=== PATIENT | female | born 1995 | race Caucasian/White ===

== ENCOUNTER 2021-01-22 10:17 | Emergency (ER) | payer BC, SELFPAY ==
[2021-01-22 10:18] VITALS: BP 179/113; PULSE 107; RESP 18; TEMP 35.9; BMI 44.2
--- NOTE | 2021-01-22 10:31 | CT_ITS ---
STUDY: CT ABDOMEN AND PELVIS WITHOUT CONTRAST REASON FOR EXAM: Female, 25 years old. R flank pain RADIATION DOSAGE (If Supplied By Facility): CTDIvol = ( 19.72 ) mGy, DLP = ( 1079.06 ) mGycm TECHNIQUE: Transaxial images were obtained from the dome of the diaphragm to the symphysis pubis without oral contrast, and without intravenous contrast. Sagittal and coronal images were reconstructed. Individualized dose optimization techniques were used for this CT. COMPARISON: None. FINDINGS: The visualized lung bases are unremarkable. The visualized portions of the heart are within normal limits. There is decreased attenuation of the liver consistent with steatosis. Normal gallbladder and extrahepatic biliary system. Normal spleen. Normal pancreas. Normal bilateral adrenal glands. Normal right kidney. Normal left kidney. Normal visualized stomach. Normal small intestine. Normal colon. The appendix is visualized and appears normal. Normal abdominal aorta. Normal inferior vena cava. Normal retroperitoneum. Normal urinary bladder. Normal abdominal wall. Normal osseous structures. CT/Abdomen/Pelvis without Cont IMPRESSION: No evidence of nephrolithiasis or hydronephrosis. No evidence of additional acute intra-abdominal process or focal inflammation. Normal appendix. Electronically Signed: Bob Mtz DO at 11:45 EDT , Service support ,
--- NOTE | 2021-01-22 10:38 | EDS_ITS ---
HPI HPI - GI History of Present Illness Chief Complaint: Flank Pain Informant: patient Abdominal Pain/Flank Pain Onset: Yesterday Context: - (Woke up with it) Timing: Continuous and Waxes and wanes Quality: Aching Location: Right Flank Current Severity: Moderate Maximum Severity: Severe Worsened by: Nothing Relieved by: Nothing Nausea/Vomiting/Emesis GI Symptom: Positive for Nausea (Only when pain severe); Negative for Vomiting Diarrhea/Melena/Hematochezia GI Symptom: Negative for Diarrhea, Melena and Hematochezia Associated Symptoms Associated Symptoms: Positive for Dysuria, Frequency and Urgency Narrative Narrative: Patient started having urinary symptoms 3 or 4 days ago, yesterday flank pain started while she was sleeping, more in her back, she does not feel it, around the right side of her abdomen, but the lower abdomen and perineum hurts. No rash. No vaginal discharge. Small amounts of blood but she thinks maybe that was coming from her vagina she has an IUD. She has had small blood clots before and she did not have any interruption in flow when these came out. No gross hematuria. PFSH PFSH no medical history Home Medications ciprofloxacin HCl 500 mg PO BID #14 tablet 01/22/21 [Rx Last Taken Unknown] Allergy/AdvReac Type Severity Reaction Status Date / Time No Known Allergies Allergy Verified 01/22/21 10:18 Surgical History History of Social History Smoking Status: Smoker, status unknown ROS ROS ED Constitutional Constitutional ED: Denies chills or fever(s) Eyes Eyes: Denies change in vision or diplopia ENT ENT ED: Denies rhinorrhea or sore throat Cardiovascular Cardiovascular: Denies chest pain or palpitations Respiratory/Chest Respiratory/Chest: Denies cough or dyspnea Gastrointestinal Gastrointestinal: Reports abdominal pain and nausea; Denies diarrhea or vomiting Genitourinary Genitourinary ED: Reports dysuria and urinary frequency; Denies hematuria Musculoskeletal Musculoskeletal: Reports back pain; Denies neck pain Integumentary Denies abscess or rash Neurologic Neurologic: Denies headache(s), paresthesias or weakness Psychiatric Psychiatric: Denies anxiety or suicidal thoughts EXAM Physical Exam Const Vital Signs: 01/22/21 10:18 01/22/21 11:04 Temperature 96.7 F L Temperature Source Temporal Pulse Rate 107 H Respiratory Rate 18 Respiratory Effort Normal Non-Labored Blood Pressure 179/113 H Blood Pressure Mean 135 Positive well nourished and well developed General Appearance ED: well developed and NAD HEENT Reports moist mucous membranes normocephalic and atraumatic Eyes PERRL and EOMs intact bilaterally Neck full ROM and supple Resp normal respiratory effort and clear to auscultation bilaterally Cardio regular rate, regular rhythm and no murmurs GI non-distended GI Narrative: Mildly tender suprapubic Auscultation: normoactive bowel sounds Palpation: soft Back/Spine General Back: CVA tenderness right and other FROM Extremity normal to inspection General Extremety ED: Negative for edema, pulses abnormal or tenderness General Extremity: Negative for edema or pulses abnormal Neuro oriented x3, CN's II-XII intact bilaterally and no sensory deficits noted Sensorium / Orientation: awake and alert Motor Exam: strength 5/5 throughout Skin no rashes or lesions noted and no wounds MDM MDM MDM Narrative Medical decision making narrative: Patient symptoms are more consistent with pyelonephritis, however since she awoke with sudden pain and they are concerned about a kidney stone I was happy to obtain a CT, it was normal with no stones or radiographic evidence of pyelonephritis but given that her clinical symptoms are consistent with early pyelonephritis I think would be reasonable to cover her for that. I did send her urine for culture. She was given Toradol and felt much better. She was given the option of Bactrim for 2 weeks or Cipro for 1 with a dose of IV Rocephin, she chose the latter, she was advised to follow-up if not feeling better within a couple days. Lab Data Attestation: I reviewed the patient's lab results. Labs: Laboratory Results - last 24 hr 01/22/21 11:00 Urine Color Yellow Urine Clarity Cloudy Urine pH 5.0 Ur Specific [place] 1.020 Urine Protein 30 H Urine Glucose (UA) Normal Urine Ketones Negative Urine Occult Blood 150 H Urine Nitrite Positive H Urine Bilirubin 1 H Urine Urobilinogen Normal Ur Leukocyte Esterase 500 H Urine RBC 10-25 SEEN Urine WBC >100 SEEN Ur Squamous Epith Cells 0-5 SEEN Urine Bacteria 1+ Urine Mucus 0 SEEN Urine Test Negative Radiography Diagnostic Testing: Radiology Impression Abdomen/Pelvis CT 01/22/21 10:31 IMPRESSION: No evidence of nephrolithiasis or hydronephrosis. No evidence of additional acute intra-abdominal process or focal inflammation. Normal appendix. Electronically Signed: Bob MtzDO at 11:45 EDT , Service support , Discharge Plan Triage Chief Complaint: Flank Pain ED Provider: Shayne Pruitt Dx/Rx/DC Orders Clinical Impression: Pyelonephritis Instructions: ED Pyelonephritis, Female (Adult) Prescriptions: New ciprofloxacin HCl [ciprofloxacin HCl] 500 MG tablet 500 mg PO BID Qty: 14 RF: 0 Primary Care Provider: Care Physician,No Primary Referrals: Care Physician,No Primary [Primary Care Provider] - Doctor,Your [STAFF PHYSICIAN] - 3-5 Days if not improving Disposition Disposition: Home, Self Care
[2021-01-22] MEDS: Ketorolac 30 MG/ML Syringe IV (11:03)
[2021-01-22] MEDS: Ondansetron 4 MG/2 ML Vial IV (11:03)
[2021-01-22 11:13] LABS: Mucous, Urine 0 SEEN /hpf (<or=2+)
[2021-01-22 11:15] LABS: Color, Urine Yellow (Yellow); Glucose, Dipstick Normal (Normal); Ketone-Dipstick Negative (Negative); Leukocyte Esterase-Dipstick 500 /ul (Negative); Nitrite-Dipstick Positive (Negative); Occult Blood-Urine 150 /ul (Negative); Protein-Dipstick 30 mg/dl (Negative); Urine Clarity Cloudy (Clear); Urine Urobilinogen Normal (Normal)
[2021-01-22 11:34] LABS: Bacteria 1+ /hpf (None Seen); Red Blood Cells-Urine 10-25 SEEN /hpf (0-5); Squamous Epithelial Cells - UA 0-5 SEEN /hpf (5-10); Urine Bilirubin Dipstick 1 mg/dL (Negative); White Blood Cells >100 SEEN /hpf (0-5)
[2021-01-22 11:35] LABS: Internal QC Validated? YES +Cl - CLEAR BKGD; Pregnancy, Urine Negative Negative
[2021-01-22] MEDS: Ceftriaxone 1 GM/50 ML BAG IV (12:24)
[2021-01-22 12:25] VITALS: BP 127/78; PULSE 72; RESP 16; TEMP 36.9; O2SAT 97
[2021-01-22 13:17] VITALS: BP 120/76; PULSE 75; RESP 16; O2SAT 99
== END 2021-01-22 13:19 | disposition home or self-care (01) ==
PROVIDERS: Emergency Provider Emergency Medicine
DX: N12 Tubulo-interstitial nephritis, not specified as acute or chronic (principal); F17.200 Nicotine dependence, unspecified, uncomplicated
CPT/HCPCS: 74176; 81001; 81025; 87077; 87086; 87088; 87186; 96365; 96375; 99283; J7030; J2405